=== PATIENT | male | born 1975 ===

== ENCOUNTER 2020-09-23 00:52 | Emergency (ER) | payer OTHER ==
[~2020-09-23] VITALS: Ht 188 cm; Wt 135.0 kg
[2020-09-23 01:46] LABS: BASOPHILS % (AUTO) 1 % (0-1); EOSINOPHILS % (AUTO) 5 % (1-7); LYMPHOCYTES % (AUTO) 15 % (22-44); MEAN CORPUSCULAR HEMOGLOBIN 30.3 pg (27.5-34.5); MEAN CORPUSCULAR HGB CONC 33.4 g/dL (33.2-36.2); MEAN PLATELET VOLUME 9.6 fL (7.4-10.4); MONOCYTES % (AUTO) 8 % (2-9); NEUTROPHILS % (AUTO) 71 % (42-75); PLATELET COUNT 138 x10^3/uL (130-400); RED CELL DISTRIBUTION WIDTH 14.5 % (9.4-14.8)
[2020-09-23 01:48] LABS: MD NO
[2020-09-23] MEDS ORDERED: TADALAFIL PO (01:56)
[2020-09-23 01:57] LABS: ALANINE AMINOTRANSFERASE 28 U/L (12-78); ALBUMIN 3.3 g/dL (3.4-5.0); ANION GAP 6 mmol/L (5-15); CALCIUM 8.5 mg/dL (8.5-10.1); CHLORIDE 108 mmol/L (98-107); CREATININE 0.94 mg/dL (0.7-1.3)
[2020-09-23] MEDS ORDERED: LINA5TAB PO (01:58)
[2020-09-23] MEDS ORDERED: METF500T17 PO (01:58)
[2020-09-23] MEDS ORDERED: LISI-167 PO (01:58)
[2020-09-23] MEDS ORDERED: ATOR10TA9 PO (01:58)
[2020-09-23] MEDS ORDERED: GLIM2TAB7 PO (01:58)
[2020-09-23] MEDS ORDERED: TESTOSTERONE INJ IM (01:59)
[2020-09-23 02:08] LABS: ALKALINE PHOSPHATASE 84 U/L (45-117); BILIRUBIN,TOTAL 0.4 mg/dL (0.2-1.0); TOTAL PROTEIN 6.8 g/dL (6.4-8.2); TROPONIN I < 0.015 ng/mL (0.000-0.045)
[2020-09-23] MEDS ORDERED: SODIUM CHLORIDE 0.9% 1,000ML IVBOLUS ONE (03:00)
--- NOTE | 2020-09-23 04:19 | NUR ---
PT RESTING ON GURNEY, IVF RUNNING, FINGERSTICK POST NS. PT NAD, DENIES ADDITIONAL QUESTIONS OR NEEDS AT THIS TIME. AT BS, CALL LIGHT ON LAP, WCTM.
[2020-09-23 04:37] VITALS: BP 150/89
--- NOTE | 2020-09-23 04:39 | NUR ---
Patient given discharge instructions and they have confirmed that they understand the instructions. Patient ambulatory with steady gait. nad, denies additional questions or needs, states "im just going to take my meds as soon as i get home. this is when i normally take them." no personal belongings left in room at time of dc.
== END 2020-09-23 04:59 | disposition home or self-care (01) ==
LOC: ED 01:24
DX: K21.9 Gastro-esophageal reflux disease without esophagitis (principal); R07.89 Other chest pain; E11.65 Type 2 diabetes mellitus with hyperglycemia; R10.13 Epigastric pain; I10 Essential (primary) hypertension; I45.10 Unspecified right bundle-branch block
CPT/HCPCS: 36415; 71046; 80053; 82962; 83690; 84443; 84484; 85025; 93005; 96360; 99285; J7030